=== PATIENT | female | born 1940 | race Caucasian/White ===

== ENCOUNTER 2020-03-20 08:40 | Outpatient (CLI) | payer MEDICARE, SELFPAY ==
--- NOTE | 2020-03-21 09:40 | WPDPFTINT ---
PFT Interpretation PFT Interpretation: DOS: 03/20/2020 REQUESTING: Aline Tinajero NP REASON FOR TESTING: dyspnea on exertion PULMONARY FUNCTION TESTS Results are reliable and reproducible. Spirometry: [ FEV1 80%, 1.41 L normal. FVC 92%. FEV1/FVC ratio is 84% normal. YBJ25-62% is 56%, decreased. There is no increase after bronchodilator administration. Lung volumes: TLC 109% normal. RV 131% increased consistent with mild air trapping. Airway resistance increased 237%. Diffusion: DLCO 68% mildly decreased. Flow volume loop: Normal. IMPRESSION: mild obstructive ventilatory impairment primarily in the small airways without response to bronchodilator, mild air trapping and increase in airway resistance. Lack of response to bronchodilators should not preclude use if clinically indicated. Tammy Vences MD
== END 2020-03-20 08:41 | disposition home or self-care (01) ==
PROVIDERS: PCP Family Medicine; Visit Provider Nurse Practitioner
DX: R06.02 Shortness of breath (principal)
CPT/HCPCS: 94060; 94726; 94729

== ENCOUNTER 2023-09-01 10:57 | Outpatient (RCR) | payer MEDICARE, SELFPAY ==
--- NOTE | 2023-09-01 11:50 | OPREHPOC ---
Outpatient Therapy Plan of Care This is a Multidisciplinary Plan of Care that may contain components documented by all disciplines (PT, OT, and ST.) PT Problem 1 PT Problem #1 Knowledge Deficit PT Goal 1 Goal 1. compliant with HEP 3x weekly with family. Target Visit 6 PT Problem 2 PT Problem #2 Impaired Strength PT Goal 1 Goal 1. improve bilateral hip strength to 4+/5 or better with sitting flexion 2. improve bilateral knee strength to 5/5 3. patient to complete 5 double leg stance heel raises without knee flexion Target Visit 12 PT Problem 3 PT Problem #3 Impaired Functional Mobil PT Goal 1 Goal 1. tinetti to display moderate fall risk or less 2. patient to perform TUG in under 20 seconds with safe turning 3. patient to perform 5x sit to family services coordinator under 15 seconds to decrease fall risk 4. patient to display safe transfers sit to stand 100% of the time with rollator without VC's 5. patient to display safe walking mechanics and body position with rollator 100% of the time without VC's 6. patient to ambulate 600ft in 6 minute walk test with step through bilateral mechanics without VC' s. Target Visit 12
--- NOTE | 2023-09-01 11:50 | PTOPEVAL1 ---
Assessment and note entered by JT File, PT Evaluation Information Assessment Status Evaluation Diagnosis generalized weakness Onset 08/26/23 Subjective Information patient reports she is coming to therapy due to weakness in her legs. she reports she has had no falls. she reports she does have trouble getting up and down from chairs and walking. she reports she has steps at home. she reports she does not have trouble with her steps. she reports she lives with her son. she reports he takes care of the cooking, dishes, and cleaning. she reports she also has a daughter that comes over to help her with self care tasks. Reported Pain Level Pain Score 0: Self Report Assessment PT Clinical Summary mrs. dave is an 83 yo woman who presents to skilled PT services for evaluation and treatment of generalized weakness. upon evaluation today, she presents with bilateral LE weakness, high fall risk, and poor transfer and ambulation safety. continues skilled PT is indicated to improve her objective/functional deficits and progress towards a return to her prior level functional activity performance, safety, independence, and quality of life. Plan of Care Interventions Gait Training,Neuro Re-education,Patient/Caregiver Educati,Therapeutic Activities,Therapeutic Exercise PT Services Indicated Yes Treatment Frequency and 3x weekly for 12 visits Duration These treatments will address the objective and functional deficits as defined above. The patient will be advanced safely and appropriately in order for the patient to progress towards his/her prior level of function. Additional exercises will be introduced and as well as a comprehensive home exercise program upon discharge, if needed, ?to ensure carryover of functional gains achieved in the clinic. This treatment plan has been reviewed and agreement upon by the patient.
--- NOTE | 2023-09-04 17:54 | PCPTNOTE ---
09/04/23: Pt cancelled due to being sick. -Leti Cobos, PT
--- NOTE | 2023-09-29 12:55 | OPREHPOC ---
Outpatient Therapy Plan of Care This is a Multidisciplinary Plan of Care that may contain components documented by all disciplines (PT, OT, and ST.) PT Problem 1 PT Problem #1 Knowledge Deficit PT Goal 1 Goal 1. compliant with HEP 3x weekly with family. Target Visit 6 Progress Met PT Problem 2 PT Problem #2 Impaired Strength PT Goal 1 Goal 1. improve bilateral hip strength to 4+/5 or better with sitting flexion 2. improve bilateral knee strength to 5/5 3. patient to complete 5 double leg stance heel raises without knee flexion met Target Visit 12 Progress Partially Met PT Problem 3 PT Problem #3 Impaired Functional Mobil PT Goal 1 Goal 1. tinetti to display moderate fall risk or less 2. patient to perform TUG in under 20 seconds with safe turning 3. patient to perform 5x sit to associate trainer under 15 seconds to decrease fall risk 4. patient to display safe transfers sit to stand 100% of the time with rollator without VC's 5. patient to display safe walking mechanics and body position with rollator 100% of the time without VC's 6. patient to ambulate 600ft in 6 minute walk test with step through bilateral mechanics without VC' s. Target Visit 12 Comment continue
--- NOTE | 2023-09-29 12:59 | PTOPREEVAL ---
Assessment and note entered by Julia Echols DPT Evaluation Information Assessment Status Progress Diagnosis generalized weakness Onset 08/26/23 Subjective Information patient reports no falls since start of PT. she reports she feels stronger and can get out of the chair easier. She reports she is not using the walker unless her family prompts her. she reports that she is doing her HEP 1-2x a day. Reported Pain Level Pain Score 0: Self Report Assessment PT Clinical Summary Mrs. Ca has attended 10 visits of skilled PT. She is progressing well towards goals. She reports no falls, improved ability to stand up from chair and improved LE strength. She continues to presents as a fall risk with TUG and 5TSTS scoring. She reports she has been independent with HEP. She will benefit from continued skilled PT to address remaining impairments and return to PLOF. Plan of Care Interventions Gait Training,Neuro Re-education,Patient/Caregiver Educati,Therapeutic Activities,Therapeutic Exercise PT Services Indicated Yes Treatment Frequency and continue with remaining 2 visits Duration These treatments will address the objective and functional deficits as defined above. The patient will be advanced safely and appropriately in order for the patient to progress towards his/her prior level of function. Additional exercises will be introduced and as well as a comprehensive home exercise program upon discharge, if needed, ?to ensure carryover of functional gains achieved in the clinic. This treatment plan has been reviewed and agreement upon by the patient.
== END 2023-09-29 20:00 | disposition home or self-care (01) ==
LOC: CHSPT 10:57
PROVIDERS: PCP Family Medicine
DX: R53.1 Weakness (principal)
CPT/HCPCS: 97110; 97112; 97161; 97530